=== PATIENT | female | born 1965 | race Caucasian/White ===

== ENCOUNTER 2016-07-06 07:55 | Day surgery (SDC) | payer OTHER ==
[2016-07-05 17:19] VITALS: BMI 28.0
[2016-07-06 08:07] VITALS: TEMP 97.7
[2016-07-06] MEDS ORDERED: PROPOFOL 20 ML ONE ×2 (08:22)
[2016-07-06 09:41] VITALS: BP 128/72; PULSE 68
--- NOTE | 2016-07-10 12:52 | PATH ---
Surgical Pathology Report Patient Name: PAPITO MCGINNIS [facility] [place]. Rec. #: [id number] /Age/Gender: 1965 (Age: 51) / F Account: [id number] Location: [facility]-ENDOSCOPY Taken: 07/06/2016 Received: 07/06/2016 Reported: 07/10/2016 Physicians: Atilio Pruitt M.D. Specimen(s) Received A: BX DUODENUM B: BX ANTRUM Clinical History GERD, rule out colon cancer Rule out celiac disease, gastritis Final Diagnosis A. DUODENUM, BIOPSY: MILD CHRONIC DUODENITIS. Note: Features suggestive of celiac disease are not identified in this biopsy. B. ANTRUM, BIOPSY: MODERATE CHRONIC GASTRITIS. IMMUNOSTAIN IS NEGATIVE FOR H. PYLORI ORGANISMS. Electronically Signed Jud Cheek M.D. Gross Description A. Received in formalin, labeled "duodenum" are 2 vaughan, irregular portions of soft tissue averaging 0.3 cm. in greatest dimension. The specimens are submitted in toto in one cassette. B. Received in formalin, labeled "antrum" are 2 vaughan, irregular portions of soft tissue averaging 0.4 cm. in greatest dimension. The specimens are submitted in toto in one cassette. 07/07/2016 saudi07/07/2016
== END 2016-07-06 09:42 | disposition home or self-care (01) ==
LOC: FASU-ENDO 07:55
PROVIDERS: ATTEND Internal Medicine Gastroenterology
PROC: 0DB98ZX Excision of Duodenum, Via Natural or Artificial Opening Endoscopic, Diagnostic (ICD-10-PCS; principal; 2016-07-06 08:43)
PROC: 0DB68ZX Excision of Stomach, Via Natural or Artificial Opening Endoscopic, Diagnostic (ICD-10-PCS; 2016-07-06 08:43)
DX: K29.50 Unspecified chronic gastritis without bleeding (principal); K29.80 Duodenitis without bleeding
CPT/HCPCS: 84703; 88305-TC; 88342-TC